=== PATIENT | male | born 1935 | race Caucasian/White ===

== ENCOUNTER 2016-07-20 08:08 | Day surgery (SDC) | payer MEDICARE, BC ==
[2006-01-03 19:10] VITALS: BP 116/69
[~2016-07-20] VITALS: Ht 167.6 cm; Wt 76.8 kg
[2016-07-20 08:54] VITALS: BP 145/89; PULSE 85; TEMP 97.3
[2016-07-20] MEDS ORDERED: LIPITOR 10MG10 MG PO (09:14)
[2016-07-20] MEDS ORDERED: LASIX 20MG TABL20 MG PO (09:14)
[2016-07-20] MEDS ORDERED: ASPIRIN 81M81 MG/TA2 PO (09:15)
[2016-07-20] MEDS ORDERED: PLAVIX 75MG TAB75 MG PO (09:15)
[2016-07-20] MEDS ORDERED: OXYGEN IH (09:18)
[2016-07-20] MEDS ORDERED: NEB MC ×2 (09:19)
[2016-07-20] MEDS ORDERED: NEB (09:20)
[2016-07-20 10:19] VITALS: BP 99/67; PULSE 80
[2016-07-20 10:34] VITALS: BP 126/72; PULSE 91
[2016-07-20 10:59] VITALS: BP 110/64; PULSE 88
[2016-07-20 11:04] VITALS: BP 116/55; PULSE 78
[2016-07-20 11:19] VITALS: BP 105/57; PULSE 77
== END 2016-07-20 11:30 | disposition home or self-care (01) ==
LOC: SDCO 08:08
DX: J44.9 Chronic obstructive pulmonary disease, unspecified (principal); J98.09 Other diseases of bronchus, not elsewhere classified; R91.8 Other nonspecific abnormal finding of lung field; Z87.891 Personal history of nicotine dependence; Z95.820 Peripheral vascular angioplasty status with implants and grafts
CPT/HCPCS: J2704; J7120

== ENCOUNTER → 2016-08-17 | Outpatient (CLI) | payer MEDICARE, BC ==
[~2016-08-17] MED LIST: ASPIRIN 81M81 MG/TA2 PO; LASIX 20MG TABL20 MG PO; LIPITOR 10MG10 MG PO; NEB; NEB MC; OXYGEN IH; PLAVIX 75MG TAB75 MG PO
== END ==
LOC: COL.VAS 09:45
DX: I51.7 Cardiomegaly (principal); R06.02 Shortness of breath; Z87.891 Personal history of nicotine dependence

== ENCOUNTER → 2018-11-28 | Outpatient (CLI) | payer MEDICARE, BC | LOC: MHCPAIN 13:43 | DX: G89.29 Other chronic pain (principal); M47.817 Spondylosis without myelopathy or radiculopathy, lumbosacral region; M54.16 Radiculopathy, lumbar region; M53.3 Sacrococcygeal disorders, not elsewhere classified | CPT/HCPCS: G0463 ==

== ENCOUNTER → 2018-12-14 | Outpatient (CLI) | payer MEDICARE, BC | LOC: MHCPAIN 13:41 | DX: M47.817 Spondylosis without myelopathy or radiculopathy, lumbosacral region (principal); M54.16 Radiculopathy, lumbar region | CPT/HCPCS: J1100; Q9967 ==

== ENCOUNTER → 2019-01-09 | Outpatient (CLI) | payer MEDICARE, BC | LOC: MHCPAIN 13:14 | DX: G89.29 Other chronic pain (principal); M47.817 Spondylosis without myelopathy or radiculopathy, lumbosacral region; M54.16 Radiculopathy, lumbar region; M53.3 Sacrococcygeal disorders, not elsewhere classified | CPT/HCPCS: G0463 ==